=== PATIENT | female | born 1965 | race Caucasian/White ===

== ENCOUNTER 2017-07-06 10:56 | Emergency (ER) | payer OTHER ==
[~2017-07-06] VITALS: Ht 152.4 cm; Wt 65.8 kg
--- NOTE | ~2017-07-06 | EKG ---
[address] [address] ELECTROCARDIOGRAM REPORT Name: NIKKO MCKEON 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: DILSHAD : 1965 Requested By: Johnathan Massey Order Number: [id number] MD: Dashawn Adam Measurements Intervals [place] Rate: 69 P: 49 ND: 153 QRS: -12 QRSD: 92 T: 64 QT: 409 QTc: 438 Interpretive Statements Sinus rhythm Abnormal R-wave progression, late transition Compared to ECG 03/11/2016 17:18:19 Ventricular premature complex(es) no longer present Electronically Signed On 07-06-2017 16:51:59 ORTHOTICS ASSISTANT by Dashawn Adam [email or web address] <ELECTRONICALLY SIGNED> By: Dashawn Adam MD 07/06/17 [id number] [id number] Dasahwn Adam MD /CRISTINA
[~2017-07-06 10:56] MED LIST: HYDROCHLOROTH12.5 M1 PO; LIPITOR 20 MG T20 M1 PO; NOHOMEMEDICATIONS; NORCO 5-325 TA1 EACH PO
[2017-07-06 11:16] LABS: HEMATOCRIT 43.3 % (37.0-47.0); HEMOGLOBIN 14.5 gm/dL (12.0-15.0); MCH 29.8 pg (26.0-34.0); MCHC 33.6 g/dL (28.0-37.0); MCV 88.6 fL (80.0-100.0); RBC 4.88 mil/uL (4.20-5.00); RDW 13.4 % (10.5-14.5); WBC 7.8 thou/uL (4.0-11.0)
[2017-07-06 11:26] LABS: ANION GAP 11 mmol/L (7-16); BUN 13 mg/dL (7-18); CALCIUM 9.4 mg/dL (8.5-10.1); CHLORIDE 105 mmol/L (98-107); CO2 28 mmol/L (21-32); CREATININE 0.5 mg/dL (0.6-1.0); GLUCOSE 128 mg/dL (74-106); SODIUM 144 mmol/L (136-145)
[2017-07-06 11:34] LABS: TROPONIN-I < 0.04 ng/mL (<0.06)
[2017-07-06] MEDS ORDERED: XANAX 0.5 MG0.5 M1 PO (12:03)
[2017-07-06 12:07] VITALS: BP 166/86
== END 2017-07-06 14:02 | disposition home or self-care (01) ==
LOC: ER 10:56
PROVIDERS: Emergency Medicine
DX: R07.9 Chest pain, unspecified (principal); I10 Essential (primary) hypertension

== ENCOUNTER → 2021-01-08 | Outpatient (CLI) | payer OTHER ==
[~2021-01-08] MED LIST changes: +XANAX 0.5 MG0.5 M1 PO
== END ==
LOC: ULTRA 07:25
PROVIDERS: ATTEND Family Medicine
DX: K76.0 Fatty (change of) liver, not elsewhere classified (principal); N88.8 Other specified noninflammatory disorders of cervix uteri; K80.20 Calculus of gallbladder without cholecystitis without obstruction